=== PATIENT | male | born 1990 | race Caucasian/White ===

== ENCOUNTER 2020-01-28 22:43 | Emergency (ER) | payer OTHER ==
[~2020-01-28] VITALS: Ht 177.8 cm; Wt 89.4 kg
[2020-01-28 22:48] VITALS: Ht 177.8 cm; Wt 89.4 kg
[2020-01-29 01:20] LABS: BASOPHIL % 0.3 % (0-2); PLATELET COUNT 219 x10^3mcL (130-400); RED CELL DISTRIBUTION WIDTH 13.9 % (11.5-14.5)
[2020-01-29 01:21] LABS: CALCIUM 9.2 mg/dL (8.5-10.1); CARBON DIOXIDE 26.3 mmol/L (21-32); CHLORIDE SERUM 105 mmol/L (98-107); CREATININE SERUM 1.2 mg/dL (0.7-1.3); GFR1 > 60 mL/min; GLUCOSE SERUM 91 mg/dL (74-106); POTASSIUM SERUM 4.5 mmol/L (3.5-5.1); SODIUM SERUM 139 mmol/L (136-145)
[2020-01-29 01:34] LABS: ALBUMIN 4.1 g/dL (3.4-5.0); ALKALINE PHOSPHATASE 90 U/L (46-116); ALT/SGPT 30 U/L (16-63); AST/SGOT 12 U/L (15-37); BILIRUBIN TOTAL 0.45 mg/dL (0.20-1.00); TOTAL PROTEIN, SERUM 7.2 g/dL (6.4-8.2)
[2020-01-29 03:02] LABS: microscopic required? NO
[2020-01-29 03:07] VITALS: BP 129/80
[2020-01-29 03:16] LABS: urine erythrocyte NEGATIVE (NEGATIVE)
[2020-01-29 03:28] LABS: AMPHETAMINE QUAL UR NONE DETECTED (See below)
== END 2020-01-29 03:07 | disposition home or self-care (01) ==
LOC: ED 22:43
PROVIDERS: Student in an Organized Health Care Education/Training Program
DX: M94.0 Chondrocostal junction syndrome [Tietze] (principal); Z90.89 Acquired absence of other organs
CPT/HCPCS: 36415; 83880; J1885; Q0092